=== PATIENT | male | born 1960 | race African-American/Black ===

== ENCOUNTER 2017-07-03 22:39 | Emergency (ER) | payer MEDICAID ==
[~2017-07-03] VITALS: Ht 154.9 cm; Wt 87.0 kg
[~2017-07-03 22:39] MED LIST: DILANTIN PO
[2017-07-04] MEDS ORDERED: LIDOCAINE HCL 1% 20ML VIAL (Pyxis) INJ INFIL ONE (06:45)
[2017-07-04] MEDS ORDERED: CEFTRIAXONE SODIUM 1 G/VIAL IM ONE (06:45)
[2017-07-04] MEDS ORDERED: SULFAMETHOXAZOLE/TRIMETHOPRIM 800/160MG TABLET PO ONE (07:00)
[2017-07-04 07:30] VITALS: BP 117/56
[2017-07-04] MEDS ORDERED: PHENYTOIN SODIUM EXTENDED 100MG CAPSULE PO ONE (07:45)
== END 2017-07-04 09:49 | disposition home or self-care (01) ==
LOC: ER 22:50
DX: L03.114 Cellulitis of left upper limb (principal); G40.909 Epilepsy, unspecified, not intractable, without status epilepticus; F17.210 Nicotine dependence, cigarettes, uncomplicated; Z91.14 Patient's other noncompliance with medication regimen
CPT/HCPCS: 36415; 80185; 96372; 99283; J0696; J3490; Z7610

== ENCOUNTER 2017-07-05 07:50 | Emergency (ER) | payer MEDICAID ==
[~2017-07-05] VITALS: Ht 185.4 cm; Wt 82.0 kg
[2017-07-05 08:10] VITALS: BP 122/74
== END 2017-07-05 10:49 | disposition home or self-care (01) ==
LOC: ER 09:42
DX: L03.818 Cellulitis of other sites (principal); F17.210 Nicotine dependence, cigarettes, uncomplicated; R56.9 Unspecified convulsions; Z91.14 Patient's other noncompliance with medication regimen
CPT/HCPCS: 99281; Z7610

== ENCOUNTER 2017-08-08 01:11 | Emergency (ER) | payer MEDICAID ==
[~2017-08-08] VITALS: Ht 185.4 cm; Wt 100.0 kg
[2017-08-08] MEDS ORDERED: HYDROCODONE/ACETAMINOPHEN 5/325MG TABLET PO ONE (08:30)
[2017-08-08] MEDS ORDERED: BACITRACIN ZINC OINT UDPKT TOP ONE (08:30)
[2017-08-08] MEDS ORDERED: KETOROLAC 60MG/2ML VIAL IM ONE (08:30)
[2017-08-08] MEDS ORDERED: LIDOCAINE HCL 1% 20ML VIAL (Pyxis) INJ MC ONE (08:30)
[2017-08-08] MEDS ORDERED: TETANUS, DIPHTHERIA, PERTUSSIS VAC/PF 0.5ML (>7YR OLD) IM ONE (08:30)
[2017-08-08 12:10] VITALS: BP 117/71
== END 2017-08-08 12:25 | disposition home or self-care (01) ==
LOC: ER 01:11
DX: S31.010A Laceration without foreign body of lower back and pelvis without penetration into retroperitoneum, initial encounter (principal); W45.8XXA Other foreign body or object entering through skin, initial encounter; W22.8XXA Striking against or struck by other objects, initial encounter; Y93.89 Activity, other specified; Y92.524 Gas station as the place of occurrence of the external cause; Z23 Encounter for immunization; G40.909 Epilepsy, unspecified, not intractable, without status epilepticus; F10.10 Alcohol abuse, uncomplicated; M43.16 Spondylolisthesis, lumbar region
CPT/HCPCS: 12002; 72100; 99284; J3490; X7700; Z7610